=== PATIENT | male | born 1950 | race Asian ===

== ENCOUNTER → 2018-06-19 | Outpatient (CLI) | payer BC, OTHER ==
--- NOTE | 2018-06-19 12:26 | 2DMMODE ---
[facility] [employer] [place] [address] 2 D/M-MODE ECHOCARDIOGRAM Name: ROCKYDELLA Room #: REG JOSE Esteban#: [id number] ������������� Admission: 06/19/18 ������������� Attend Phys: Hanh Granger Discharge: ��� ������������� ��� Date of : 54 Date of Service: 06/19/18 1226 �� Report #: [id number] �������� ��������������������������������������������[id number] THIS REPORT FOR: //name// APPROVED REPORT Study performed: 06/19/2018 11:21:16 EXAM: Comprehensive 2D, Doppler, and color-flow Echocardiogram Patient Location: Out-Patient Status: ADD ON BSA: 1.70 HR: 62 bpm Rhythm: BBB Other Information Study Quality: Good Indications Bradycardia 2D Dimensions RVDd: 31.87 mm IVSd: 9.53 (7-11mm) LVOT Diam: 19.79 (18-24mm) LVDd: 61.57 mm PWd: 10.40 (7-11mm) Ascending Ao: 33.81 (22-36mm) LVDs: 50.32 (25-40mm) Aortic Root: 32.92 mm Volumes Left Atrial Volume (Systole) Single Plane 4CH: 38.32 mL Single Plane 2CH: 36.94 mL LA ESV Index: 24.00 mL/m2 Aortic Valve AoV Peak Taras.: 1.27 m/s AO Peak Gr.: 6.45 mmHg LVOT Max P.41 mmHg LVOT Max V: 1.05 m/s JUDY Vmax: 2.54 cm2 Mitral Valve E/A Ratio: 0.9 MV Decel. Time: 151.84 ms MV E Max Taras.: 0.82 m/s [facility] [address] [place] [address] 2 D/M-MODE ECHOCARDIOGRAM Name: BRENDON HIDALGOO Room #: [facility]#: [id number] ������������� Admission: 06/19/18 ������������� Attend Phys: Hanh Granger Discharge: ��� ������������� ��� Date of : 54 Date of Service: 06/19/18 1226 �� Report #: [id number] �������� ��������������������������������������������[id number] MV A Taras.: 0.93 m/s MV PHT: 44.03 ms IVRT: 134.95 ms Pulmonary Valve PV Peak Taras.: 0.89 m/s PV Peak Gr.: 3.15 mmHg Pulmonary Vein P Vein S: 0.36 m/s P Vein A: 0.22 m/s P Vein D: 0.36 m/s P Vein A Dur.: 79.6 msec P Vein S/D Ratio: 1.00 Tricuspid Valve TR Peak Taras.: 1.98 m/s RAP Estimate: 5.00 mmHg TR Peak Gr.: 15.71 mmHg PA Pressure: 21.00 mmHg Left Ventricle Left ventricle is mild to moderately dilated. global hypokinesis noted There is normal left ventricular wall thickness. Left ventricular systolic function is mild to moderately decreased. LVEF is 40-45%. Mild diastolic dysfunction is present (impaired relaxation pattern). Right Ventricle The right ventricle is normal size. Right ventricle is mildly hypokinetic. Atria The left atrium size is normal. The right atrium size is normal. Aortic Valve The aortic valve is normal in structure. Trace aortic regurgitation. There is no aortic valvular stenosis. Mitral Valve The mitral valve is normal in structure. Trace to mild mitral regurgitation. Tricuspid Valve The tricuspid valve is normal in structure. Trace to mild tricuspid regurgitation. Estimated PAP is 20-25mmHg. Pulmonic Valve The pulmonary valve is normal in structure. Mild pulmonic [facility] [address] [place] [address] 2 D/M-MODE ECHOCARDIOGRAM [facility] #: ANDREI Esteban#: [id number] ������������� Admission: 06/19/18 ������������� Attend Phys: Hanh Granger Discharge: ��� ������������� ��� Date of : 54 Date of Service: 06/19/18 1226 �� Report #: [id number] �������� ��������������������������������������������[id number] regurgitation. Great Vessels The aortic root is normal in size. The ascending aorta is normal in size. IVC is normal in size and collapses >50% with inspiration. Pericardium There is no pericardial effusion. <Conclusion> Left ventricle is mild to moderately dilated. LVEF is 40-45%. global hypokinesis noted The right ventricle is normal size. The aortic valve is normal in structure. Trace aortic regurgitation. The mitral valve is normal in structure. Trace to mild mitral regurgitation. The tricuspid valve is normal in structure. Trace to mild tricuspid regurgitation. Estimated PAP is 20-25mmHg. The pulmonary valve is normal in structure. Mild pulmonic regurgitation. There is no pericardial effusion. ��������������������������������������������� <ELECTRONICALLY SIGNED> ���������������������������������������� By: Gulshan Jeong MD ��������������������������������������������� 06/19/18 1226 1226 1226 Gulshan Jeong MD /INF
== END ==
LOC: CV 11:06
DX: I37.1 Nonrheumatic pulmonary valve insufficiency (principal); I45.10 Unspecified right bundle-branch block; I44.4 Left anterior fascicular block